=== PATIENT | female | born 1975 | race Asian ===

== ENCOUNTER 2022-02-03 14:57 | Outpatient (REF) | payer BC, SELFPAY ==
--- NOTE | ~2022-02-03 | XR_ITS ---
EXAMINATION: XR CHEST CLINICAL INFORMATION: Recurrent cough. COMPARISON: None TECHNIQUE: 2 views of the chest were obtained. FINDINGS: No significant abnormality is noted involving the heart, lungs, mediastinum, bony thorax or soft tissues. XR/XR chest 2V IMPRESSION: Unremarkable chest examination.
== END 2022-02-03 14:58 | disposition home or self-care (01) ==
LOC: HO.HMGCX 14:57
PROVIDERS: PCP Internal Medicine; Visit Provider Internal Medicine
DX: R05.9 Cough, unspecified (principal); R76.11 Nonspecific reaction to tuberculin skin test without active tuberculosis
CPT/HCPCS: 71046

== ENCOUNTER 2022-02-12 14:54 | Outpatient (REF) | payer BC, SELFPAY ==
[2022-02-12 15:18] LABS: MANUAL DIFF FLAG NO
[2022-02-12 15:39] LABS: Basophils Percent Auto 0.5 % (0-2); Eosinophils Percent Auto 0.5 % (0-4); Hematocrit 38.3 % (37.0-47.0); Hemoglobin 11.9 g/dl (12.0-16.0); Imm Gran Abs Auto 0.01 X10*3/uL (0.00-0.03); Imm Gran Pct Auto 0.2 % (0.0-0.4); Lymphocytes Percent Auto 34.8 % (20-40); Mean Corpuscular HGB Conc 31.1 g/dl (31.0-35.0); Mean Corpuscular Hemoglobin 23.2 pg (27.0-33.0); Mean Corpuscular Volume 74.5 fL (80.0-98.0); Mean Platelet Volume 10.1 fL (9.4-12.3); Monocytes Absolute Auto 0.4 X10*3/uL (0.1-1.2); Monocytes Percent Auto 6.7 % (2-11); Neutrophils Absolute Auto 3.3 x10*3/uL (2.0-8.3); Neutrophils Percent Auto 57.3 % (45-73); Platelet Count 300 X10*3/uL (160-400); Red Blood Count 5.14 X10*6/uL (4.20-5.50); Red Cell Distribution Width 18.2 % (11.0-16.0); White Blood Count 5.7 X10*3/uL (4.8-10.8)
[2022-02-14 14:28] LABS: Immunoglobulin G Subclass 1 718 mg/dL (382-929); Immunoglobulin G Subclass 2 504 mg/dL (241-700); Immunoglobulin G Subclass 3 55 mg/dL (22-178); Immunoglobulin G Subclass 4 61.3 mg/dL (4-86); Immunoglobulin G Total 1454 mg/dL (600-1640)
[2022-02-15 03:29] LABS: TS Negative Control Passed; TS Panel A 0; TS Panel B 0; TS Positive Control Passed; TSpotTB Negative (Negative)
[2022-02-17 11:58] LABS: IgA 307 mg/dL (47-310); IgG 1446 mg/dL (600-1640); IgM 137 mg/dL (50-300)
== END 2022-02-12 14:55 | disposition home or self-care (01) ==
LOC: HO.LAB 14:54
PROVIDERS: PCP Internal Medicine; Visit Provider Internal Medicine Pulmonary Disease
DX: Z91.09 Other allergy status, other than to drugs and biological substances (principal); Z92.89 Personal history of other medical treatment
CPT/HCPCS: 36415; 82784; 82785; 85025; 86003; 86481

== ENCOUNTER 2022-03-04 14:56 | Outpatient (REF) | payer BC, SELFPAY ==
--- NOTE | 2022-03-04 17:40 | PFT_ITS ---
INDICATION: Dyspnea. SPIROMETRY: FEV1 to FVC 81% with an FEV1 of 2.4 L, which is 92% predicted and FVC of 2.94 L, which is 91% predicted. No significant response to bronchodilators noted. Maximum voluntary ventilation 92% predicted. LUNG VOLUMES: Total lung capacity 101% predicted. DIFFUSION CAPACITY: DLCO 94% predicted. COMPARISONS: None. INTERPRETATION: No obstructive nor restrictive ventilatory defects identified. No significant response to bronchodilators noted. Normal maximum voluntary ventilation. Lung volumes are normal and diffusion capacity is within normal limits. If asthma is in the differential, methacholine challenge may be helpful in assessing for hyper-reactive airways, otherwise clinical correlation warranted. MD RUBY Shirley/MODThomas / [id number]
== END 2022-03-04 14:57 | disposition home or self-care (01) ==
LOC: HO.RESP 14:56
PROVIDERS: PCP Internal Medicine; Visit Provider Internal Medicine Pulmonary Disease
DX: R05.9 Cough, unspecified (principal)
CPT/HCPCS: 94060; 94727; 94729

== ENCOUNTER → 2022-03-05 13:44 | Outpatient (BNVA) | payer BC, SELFPAY | PROVIDERS: PCP Internal Medicine; Visit Provider Internal Medicine Pulmonary Disease | DX: Z13.89 Encounter for screening for other disorder (principal) ==

== ENCOUNTER 2023-05-08 15:10 | Outpatient (REF) | payer BC, SELFPAY ==
--- NOTE | ~2023-05-08 | XR_ITS ---
EXAMINATION: XR ANKLE, RIGHT CLINICAL INFORMATION: Right ankle pain and swelling. COMPARISON: None available. TECHNIQUE: AP, lateral, and mortise views of the right ankle. FINDINGS: There are small avulsion fracture fragment tip of medial malleolus with mild soft tissue swelling which could be subacute or old. The lateral malleolus is normal. The ankle mortise and subtalar joints are normal. The soft tissues are normal. XR/XR ankle RT min 3V IMPRESSION: 1. Small avulsion fracture fragment tip of medial malleolus with mild soft tissue swelling. This could be subacute or old. 2. Rest of the ankle is unremarkable.
--- NOTE | ~2023-05-08 | XR_ITS ---
EXAMINATION: XR CHEST CLINICAL INFORMATION: Cough COMPARISON: 02/03/2022 TECHNIQUE: 2 views of the chest were obtained. FINDINGS: No significant abnormality is noted involving the heart, lungs, mediastinum, bony thorax or soft tissues. XR/XR chest 2V IMPRESSION: Unremarkable examination.
== END 2023-05-08 15:11 | disposition home or self-care (01) ==
LOC: HO.HMGCX 15:10
PROVIDERS: PCP Internal Medicine; Visit Provider Internal Medicine
DX: R60.0 Localized edema (principal); M25.571 Pain in right ankle and joints of right foot
CPT/HCPCS: 71046; 73610

== ENCOUNTER 2023-05-11 15:06 | Outpatient (REF) | payer BC, SELFPAY ==
--- NOTE | ~2023-05-11 | XR_ITS ---
EXAMINATION: XR KNEE, RIGHT CLINICAL INFORMATION: Right knee pain COMPARISON: None available. TECHNIQUE: Four views of the right knee. FINDINGS: No fracture or joint effusion. Alignment is anatomic. Joint spaces are maintained. No abnormal soft tissue calcification. XR/XR knee RT 2V IMPRESSION: Normal right knee.
== END 2023-05-11 15:07 | disposition home or self-care (01) ==
LOC: HO.HMGCX 15:06
PROVIDERS: PCP Internal Medicine; Visit Provider Internal Medicine
DX: M25.561 Pain in right knee (principal)
CPT/HCPCS: 73560

== ENCOUNTER 2023-06-03 12:47 | Day surgery (SDC) | payer BC, SELFPAY ==
[2023-06-01 15:26] VITALS: BMI 22.0
--- NOTE | 2023-06-02 11:41 | P.CONAN_ITS ---
Documented by User: Tami Gonsales NP 06/02/23 11:42 HPI - Anesthesia Eval Consult details Narrative: 48yo F for Colonoscopy [facility] Active Problems Active Problems: All Active Problems (Updated 02/12/22 @ 14:48 by Avni Jiménez MD) Environmental allergies (Acute) History of positive PPD (Acute) Cough (Acute) Social History Social History (Updated 02/12/22 @ 14:24 by Karime Sousa LPN) Patient Tobacco Use Status: Never used Tobacco Advance Directives: No Advance Directives Information Provided: Yes Meds Allergies Allergy/AdvReac Type Severity Reaction Status Date / Time No Known Allergies Allergy Verified 06/03/23 13:17 Home Medications Medication Instructions Recorded Confirmed Last Taken Type No Known Home Meds 06/03/23 06/03/23 Unknown History Exam Height,Weight and Vital Signs: Height 5 ft 1 in Weight 52.844 kg Narrative Narrative: XR chest 2V 05/2023 IMPRESSION: Unremarkable examination. Assessment and Plan Assessment Anesthesia Assessment: Chart Reviewed Documented by User: Jaime Gonsalves MD 06/03/23 13:21 [facility] Family History Family history of problems with anesthesia: No Surgical History History of Problems with Anesthesia: No Social History Social History (Updated 02/12/22 @ 14:24 by Karime Sousa LPN) Patient Tobacco Use Status: Never used Tobacco Advance Directives: No Advance Directives Information Provided: Yes Meds Allergies Allergy/AdvReac Type Severity Reaction Status Date / Time No Known Allergies Allergy Verified 06/03/23 13:17 Home Medications Medication Instructions Recorded Confirmed Last Taken Type No Known Home Meds 06/03/23 06/03/23 Unknown History Exam Airway Mallampati Class: II TM Dist: >3cm Neck ROM: Full Loose/Missing/Broken Teeth: No Heart: rrr Lungs: cta Assessment and Plan Assessment Anesthesia Assessment: Anesthesia Plan Discussed Final Anesthetic Review Family History of Problems with Anesthesia: No History of Problems with Anesthesia: No NPO: Yes ASA Class: I Final Preanesthetic Review: No Changes in Pt Med Stat, Meds/Allgs Chart Reviewed, Consent Obtained/Reviewed and Anes Risks/Benef Reviewed Patient Risk: Intermediate Procedure Risk: Intermediate Anesthetic Plan Anesthetic Plan: MAC: Disposition: Standard PACU
[2023-06-03 13:31] VITALS: BP 102/49; PULSE 53; RESP 16; TEMP 36.6; O2SAT 100
--- NOTE | 2023-06-03 13:51 | MHC.SHP ---
Pre-Procedural Eval Section A - 24 Hr Update-Section A only Date of Service: 06/03/23 The patient is an INPATIENT: No Changes since office visit: No Cold of Flu in the past 2 weeks, No New Medical Problems, No Changes in Medication and No Patient answered all questions The patient has been examined within 24 hours of the surgical procedure. The History & Physical has been completed within 30 days and I have reviewed it.: Yes Section B - Complete if H&P > 30 days Chief Complaint: Encounter for screening for malignant neoplasm of Allergies: Allergies Allergy/AdvReac Type Severity Reaction Status Date / Time No Known Allergies Allergy Verified 06/03/23 13:17 Plan I have reviewed the history and physical and performed a pertinent physical examination on my patient. No changes have occurred unless specified. Time Spent With Patient Time: Total time managing care of this patient today ____ minutes.
--- NOTE | 2023-06-03 13:51 | HO.ANESEVENT ---
Anesthesia Event Note Date of Service: 06/03/23 Event Note: patient states that she is not and no chance to be and accepts liability if because she is not able to give urine for test Time Spent With Patient Time: Total time managing care of this patient today ____ minutes.
--- NOTE | 2023-06-03 13:56 | PC.NURSE ---
Pt unable to provide urine sample for test pre procedure. Pt denies being sexually active and admits to having her menses 05/26. Anesthesia aware and discussed inherent risks of sedation and possible .
[2023-06-03 14:47] VITALS: BP 84/50; PULSE 58; RESP 14; TEMP 36.1; O2SAT 100
[2023-06-03 14:52] VITALS: BP 95/58; PULSE 60; RESP 15; O2SAT 100
[2023-06-03 15:02] VITALS: BP 104/56; PULSE 62; RESP 18; TEMP 36.2; O2SAT 100
--- NOTE | 2023-06-04 01:04 | OP_ITS ---
DATE OF SERVICE: 06/03/2023 SURGEON: Branden Cruz MD INDICATIONS: Colon cancer screening. PREOPERATIVE DIAGNOSIS: POSTOPERATIVE DIAGNOSIS: PROCEDURE PERFORMED: Colonoscopy to the terminal ileum with biopsy and snare polypectomy. ESTIMATED BLOOD LOSS: COMPLICATIONS: ANESTHESIA: Monitored anesthesia care. ASSISTANTS: SPECIMENS: DESCRIPTION OF PROCEDURE: History and physical was performed. The risks and benefits of the procedure were explained to the patient. Informed consent was obtained. The patient was placed in the left lateral decubitus position. A digital rectal exam was performed and was found to be normal. The Olympus pediatric video colonoscope was introduced into the rectum and advanced to the cecum. The cecum was identified by transillumination, palpation, and identification of ileocecal valve. Examination was performed. The scope was removed. She tolerated the procedure well and was returned to the recovery area in stable condition. FINDINGS: The terminal ileum was examined and appeared normal. The visualized colonic mucosa was normal. The quality of the prep was good. Two polyps were identified. The first located in the cecum, measured approximately 4 mm. This was removed with biopsy forceps. There was a 2nd polyp at 60 cm, which measured approximately 10 mm and was removed with a hot snare. No other polyps were identified. Retroflexed examination showed small internal hemorrhoids. IMPRESSION: Colon polyps. RECOMMENDATION: Follow up the biopsy results. MD BRADEN Barroso/MODL / [id number] MTDD
== END 2023-06-03 15:26 | disposition home or self-care (01) ==
PROVIDERS: PCP Internal Medicine; Visit Provider Internal Medicine Gastroenterology
PROC: 0DJD8ZZ Inspection of Lower Intestinal Tract, Via Natural or Artificial Opening Endoscopic (ICD-10-PCS; CPT 45378; principal; 2023-06-03 14:20)
DX: Z12.11 Encounter for screening for malignant neoplasm of colon (principal); D12.0 Benign neoplasm of cecum; K63.5 Polyp of colon
CPT/HCPCS: 45385; 45380; 88305; 99499; J2704

== ENCOUNTER 2023-10-26 08:18 | Outpatient (REF) | payer BC, SELFPAY ==
[2023-10-26 10:13] LABS: MANUAL DIFF FLAG NO
[2023-10-26 10:17] LABS: Basophils Percent Auto 0.8 % (0-2); Eosinophils Absolute Auto 0.1 X10*3/uL (0.0-0.4); Hematocrit 43.2 % (37.0-47.0); Hemoglobin 14.4 g/dl (12.0-16.0); Lymphocytes Absolute Auto 2.2 X10*3/uL (1.2-4.9); Lymphocytes Percent Auto 46.3 % (20-40); Mean Corpuscular HGB Conc 33.3 g/dl (31.0-35.0); Mean Corpuscular Hemoglobin 28.9 pg (27.0-33.0); Mean Corpuscular Volume 86.6 fL (80.0-98.0); Mean Platelet Volume 10.8 fL (9.4-12.3); Monocytes Absolute Auto 0.3 X10*3/uL (0.1-1.2); Monocytes Percent Auto 5.4 % (2-11); Neutrophils Absolute Auto 2.2 x10*3/uL (2.0-8.3); Neutrophils Percent Auto 46.5 % (45-73); Platelet Count 192 X10*3/uL (160-400); Red Blood Count 4.99 X10*6/uL (4.20-5.50); Red Cell Distribution Width 15.9 % (11.0-16.0); White Blood Count 4.8 X10*3/uL (4.8-10.8)
[2023-10-26 11:26] LABS: Ferritin 69 ng/mL (10-250)
[2023-10-26 11:33] LABS: Cholesterol 206 mg/dL (<200); HDL Cholesterol 66 mg/dL (>40); Iron 95 mcg/dL (30-160); LDL Cholesterol Calculated 128 mg/dL (<100); Percent Iron Saturation 33 % (15-50); Total Iron Binding Capacity 292 mcg/dL (228-428); Triglycerides 64 mg/dL (<150); Unsaturated Iron Binding 197 ug/dL
[2023-10-26 11:42] LABS: Folate 13.6 ng/mL (> or = 4.0)
== END 2023-10-26 08:19 | disposition home or self-care (01) ==
LOC: HO.HMGCLDS 08:18
PROVIDERS: PCP Internal Medicine; Visit Provider Internal Medicine
DX: R53.83 Other fatigue (principal); D64.9 Anemia, unspecified; E78.5 Hyperlipidemia, unspecified
CPT/HCPCS: 36415; 80061; 82728; 82746; 83540; 85025

== ENCOUNTER 2024-12-15 09:11 | Outpatient (REF) | payer BC, SELFPAY ==
--- NOTE | ~2024-12-15 | MM_ITS ---
STUDY: DUAL ENERGY X-RAY ABSORPTIOMETRY / DXA REASON FOR EXAM: Female, 49 years old POST MENOPAUSAL TECHNIQUE: Bone Mineral Density (BMD) measurements of the lumbar spine and left hip were obtained using i[employer] COMPARISON: None FINDINGS: L2-L4 BMD: 0.966 g/cm2 L2-L4 T score: -1.9. This corresponds to osteopenia. Left femoral neck BMD: 0.780 g/cm2 Left femoral neck T score: -1.9. This corresponds to osteopenia. Left total hip BMD: 0.901 g/cm2 Left total hip T score: -0.8. This corresponds to Normal bone density. MM/XR DEXA axial skeleton IMPRESSION: Osteopenia Reference Information: The T-score is the number of standard deviations above or below the standard which is normal for young adults at their peak bone mineral density. The World Health Organization (WHO) interprets the T-scores as follows: At or above -1 SD Normal bone density Between -1 and -2.5 SD Osteopenia At or below -2.5 SD Osteoporosis Electronically signed by: Troy Mccann MD 12/15/2024 10:10 AM EDT
--- OUTSIDE RECORDS SUMMARY | 2024-12-15 10:18 | XMS_ITS | Patient Health Record ---
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 the day before the procedure; Duration: 1 day 05/20/2023 Active Immunizations Vaccine Route Administration Date Status Comme nts Influenza Unknown 01/20/2023 Administered Social History Tobacco Use: Social History Observation Description Date Details (start date - stop date) Never Smoker NA - NA Tobacco Use/Smoking Question Answer Notes Patient is a nonsmoker Alcohol Screen Question Answer Notes Did you have a drink containing alcohol in the p ast year? No Points 0 Interpretation Negative Problems Problem Type SNOMED Code ICD Code Onset Dates Problem Status W/U Status Risk Notes Problem Colon cancer screening (279739448) Colon cancer screening (Z12.11) Active confirmed Problem Pre-procedure evaluation check (839564241) Encounter for other preprocedural examination (Z01.818) Active confirmed Plan Of Treatment Future Test Test Name Order Date COLONOSCOPY 05/20/2023 Insurance Providers Payer Name Payer Address Payer Phone Subscriber Number Group Number Insured Name Patient Relationship to Insured Coverage Start Date Coverage End Date [facility] [address] [place] [address] [phone] [id number], STEF Self - patient is the insured Medical (General) History Surgical History Surgery Date(Month/Year)
== END 2024-12-15 09:12 | disposition home or self-care (01) ==
LOC: HO.MAMMO 09:11
PROVIDERS: PCP Internal Medicine; Visit Provider Internal Medicine
DX: Z13.820 Encounter for screening for osteoporosis (principal); Z78.0 Asymptomatic menopausal state
CPT/HCPCS: 77080

== ENCOUNTER → 2024-12-15 09:15 | Outpatient (BNV) | payer BC, SELFPAY | PROVIDERS: PCP Internal Medicine; Visit Provider Radiology Body Imaging | DX: E28.39 Other primary ovarian failure (principal) | CPT/HCPCS: 77080 ==

== ENCOUNTER 2024-12-30 07:33 | Outpatient (REF) | payer BC, SELFPAY ==
--- OUTSIDE RECORDS SUMMARY | 2024-12-30 07:36 | XMS_ITS | Patient Health Record ---
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 Phone Estefany (RETIRED) Nicholas WANG [...] Status Risk Notes Problem Colon cancer screening (982986286) Colon cancer screening (Z12.11) Active confirmed Problem Pre-procedure evaluation check (410436986) Encounter for other preprocedural examination (Z01.818) Active confirmed Plan Of Treatment Future Test Test Name Order Date COLONOSCOPY 05/20/2023 Insurance Providers Payer Name Payer Address Payer Phone Subscriber Number Group Number Insured Name Patient Relationship to Insured Coverage Start Date Coverage End Date [facility] [address] [place] [address] [id number], [id number] Self - patient is the insured Medical (General) History Surgical History Surgery Date(Month/Year)
[2024-12-30 10:37] LABS: Hematocrit 44.3 % (37.0-47.0); Hemoglobin 14.4 g/dl (12.0-16.0); Mean Corpuscular HGB Conc 32.5 g/dl (31.0-35.0); Mean Corpuscular Hemoglobin 27.6 pg (27.0-33.0); Mean Corpuscular Volume 85.0 fL (80.0-98.0); NRBC Abs Auto 0.000 X10*3/uL (0.0-0.012); NRBC Pct Auto 0.0 /100WBC (0.0-0.2); Platelet Count 180 X10*3/uL (160-400); Red Blood Count 5.21 X10*6/uL (4.20-5.50); White Blood Count 5.5 X10*3/uL (4.8-10.8)
[2024-12-30 10:47] LABS: Appearance Urine Clear; Glucose Urine UA Negative (Negative); PH 6.0 (5.0-9.0); Specific Gravity - Urine 1.015 (1.005-1.025); UMIC TRIGGER UA YES
[2024-12-30 11:08] LABS: Alanine Aminotransferase 26 U/L (0-31); Albumin Level 4.4 g/dL (3.5-5.0); Alkaline Phosphatase 55 U/L (39-117); Anion Gap 10 (12-20); Aspartate Amino Transferase 27 U/L (5-31); Blood Urea Nitrogen 15 mg/dL (9-16); Calcium 9.5 mg/dL (8.4-10.2); Carbon Dioxide 23 mmol/L (22-29); Chloride 110 mmol/L (96-108); Cholesterol 225 mg/dL (<200); Estimated Glomerular Filt Rate > 60; HDL Cholesterol 62 mg/dL (>40); Potassium 3.7 mmol/L (3.3-5.1); Sodium 139 mmol/L (135-145); Total Protein 7.3 g/dL (6.5-8.0); Triglycerides 97 mg/dL (<150)
[2024-12-30 11:26] LABS: Thyroid Stimulating Hormone 1.31 uIU/mL (0.32-4.0)
== END 2024-12-30 07:34 | disposition home or self-care (01) ==
LOC: HO.HMGCLDS 07:33
PROVIDERS: PCP Internal Medicine; Visit Provider Internal Medicine
DX: R05.9 Cough, unspecified (principal); Z13.6 Encounter for screening for cardiovascular disorders; Z13.29 Encounter for screening for other suspected endocrine disorder
CPT/HCPCS: 36415; 80048; 80061; 80076; 81001; 84443; 85027

== ENCOUNTER 2025-01-03 14:47 | Outpatient (AMB) | payer BC, SELFPAY ==
--- NOTE | 2025-01-03 14:50 | A.OFFPC_ITS ---
Vital Signs 01/03/25 14:58 Height 5 ft 0.5 in Weight 120 lb BMI 23.0 BP 100/62 Blood Pressure Location Rt brachial Pulse 59 Pulse Source Pulse Oximeter Temp 98.3 F Pulse Oximetry (%) 99 Intake Visit Reasons: Establish Care/ Dr. Allison Intake Note: Had Bone Density last monthat [facility] on December 15 would like results, also her toe nails are getting thick and fungal infection and would like to discuss menopause. Allergies No Known Allergies Allergy (Verified 01/03/25 14:52) PFSH Medical History (Updated 01/03/25 @ 15:24 by Frank Lal MD) Hyperlipidemia Surgical History (Updated 01/02/25 @ 08:17 by Dulce Aguilar) History of colonoscopy (~06/04/23) Social History (Updated 02/12/22 @ 14:24 by Karime Sousa LPN) Patient Tobacco Use Status: Never used Tobacco Questionnaire PHQ-9 Over the last 2 weeks, how often have you been bothered by any of the following problems? 1. Little interest or pleasure in doing things: not at all 2. Feeling down, depressed, or hopeless: not at all 3. Trouble falling or staying asleep, or sleeping too much: several days 4. Feeling tired or having little energy: not at all 5. Poor appetite or overeating: not at all 6. Feeling bad about yourself - or that you are a failure or have let yourself or your family down: not at all 7. Trouble concentrating on things, such as reading the newspaper or watching television: not at all 8. Moving or speaking so slowly that other people could have noticed. Or the opposite - being so fidgety or restless that you have been moving around a lot more than usual: not at all 9. Thoughts that you would be better off or of hurting yourself in some way: not at all Total score: 1 Source: Developed by Drs. Adalberto Farah, Shea Capps, Raghav Ford and colleagues, with an educational jackie from [employer]. Thrive Questionnaire Date Thrive assessed: 01/03/25 I am a: Patient What is your living situation today?: I have a steady place to live Within the past 12 months, did the food you bought not last and you didn't have the money to get more?: Never true Within the past 12 months, did you worry whether your food would run out before you got money to buy more?: Never true Do you have trouble paying for medicines?: No Do you have trouble getting transportation to medical appointments?: No Do you have trouble paying your heating and electricity bill?: No Do you have trouble taking care of your child, family member or friend?: No Do you have trouble with day-to-day activities such as bathing, preparing meals, shopping, managing finances, etc.?: No Are you currently unemployed and looking for a job?: No Are you interested in more education?: No THRIVE Score: 0 AUDIT C Alcohol Use Questionnaire (AUDIT-C) 1. How often do you have a drink containing alcohol?: Never 3. How often do you have six or more drinks on one occasion?: Never Total Score: 0 BRENT-7 AMB Questionnaire BRENT-7 Date BRENT - 7 assessed: 01/03/25 Feeling nervous, anxious, or on edge: 0 = Not at all Not being able to stop or control worryin = Not at all Worrying too much about different things: 0 = Not at all Trouble relaxin = Not at all Being so restless that it is hard to sit still: 0 = Not at all Becoming easily annoyed or irritable: 0 = Not at all Feeling afraid as if something awful might happen: 0 = Not at all Total BRENT-7 score (0-4 normal; 5-9 mild; 10-14 moderate; 15-21 severe): 0 Source: Developed by Drs. Adalberto Farah, Shea Capps, Raghav Ford and colleagues, with an educational jackie from [employer]. Physical exam (Primary Care) Vital Signs: Last Vital Signs Temp 98.3 F 01/03/25 14:58 Pulse 59 01/03/25 14:58 BP 100/62 01/03/25 14:58 Pulse Ox 99 01/03/25 14:58 BMI result Body Mass Index 23.0 Tobacco/Smoking Status: Tobacco use Status Patient Tobacco Use Status Never used Tobacco 01/03/25 15:01 PHQ-9: PHQ-9 Score PHQ-9: Total score 1 01/03/25 15:01 Thrive Assessment: Date of Thrive Assessment Date Thrive assessed 01/03/25 01/03/25 15:01 Coding Level of Care Code New Pt Level 4 (00652) Complex EM visit Add On G2211 Diagnoses Hyperlipidemia E78.5 Assessment & Plan Assessment & Plan (1) Hyperlipidemia: Code(s): E78.5 - Hyperlipidemia, unspecified Category: Medical Plan: History of Present Illness - The patient is a 49-year-old female presenting with concerns regarding her bone density, toenail fungus, and menopausal symptoms. - Osteopenia: A bone density scan on December 15 revealed osteopenia, which concerns the patient despite her active lifestyle that includes regular exercise, running, and strength training. - Onychomycosis: The patient has a long history of fungal infection in two toenails, and a third nail on her right foot has recently become involved and is worsening. - She has been using a topical cream with little improvement and believes she may need oral medication. - Perimenopausal symptoms: Her last menstrual period was on November 10. - She reports sleep difficulties, including waking up as early as 1:00 or 3:00 AM, which she attributes to a combination of work-related stress and menopause. - She denies experiencing significant hot flashes or sweats. - Past Medical History: The patient has a history of a colonoscopy where a polyp was removed. - Her recent mammogram was normal. 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 - Stress: She reports experiencing work-related stress, particularly concerning class enrollment numbers, which she feels contributes to her sleep problems. - Exercise: The patient reports exercising a lot, including strength training and running. Review of Systems - Constitutional: Denies significant sweats. - Integumentary: Reports fungal infection on three toenails, with one getting worse. - Musculoskeletal: Reports concern over bone density being 'lower than the normal'. - Neurological: Reports difficulty sleeping with director presales awakenings. - Psychiatric: Reports work-related stress and feeling worried. - Denies irritability, crankiness, or crying. - Endocrine: Reports her last menstrual period was November 10 and believes she is reaching menopause. Physical Exam General: Cooperative and healthy appearing Nutritional Appearance: Well nourished Orientation/consciousness: Patient oriented x3 Limitations: No limitations Head: Normal to inspection General: Appearance normal, both eyes and all related structures Neck: Normal visual inspection Chest: Normal palpation of entire chest wall Respiratory: N ormal respiratory effort Neurology: Patient oriented x3, mood good, not irritable or cranky, sometimes stressed but no crying or excessive eating. Results - Bone Mineral Density (December 15): Showed osteopenia of the neck. - Mammogram: Normal. - Colonoscopy (prior): Revealed a polyp that was removed. Plan - Osteopenia: The patient was reassured that her bone is healthy, just less dense. - She was advised to continue her current exercise regimen, including weight- bearing activities, and maintain adequate calcium intake. - A repeat bone density scan is recommended in two years. - Onychomycosis: After a discussion of the risks, including potential hepatotoxicity, and benefits of oral antifungal medication, the patient declined this treatment option. - She will be prescribed a strong topical cream/drop for the affected toenails. - She was also advised to keep her nails clipped and clean. - Perimenopausal Insomnia/Stress: The patient declined a prescription for sleep medication (trazodone) at this time. - Hormone replacement therapy was discussed and not recommended due to increased risks of breast cancer and heart disease. - The patient may try soy milk as a source of phytoestrogens. - Follow-up: The patient will return for a follow-up visit in six months. Discussion Notes I discussed the results of the patient's recent bone density scan, explaining that the diagnosis of osteopenia means she has healthy bone, but less bone mass. I reassured her that her current regimen of weight-bearing exercise is the correct approach and that no medication is needed at this time, with a plan to repeat the scan in two years. Regarding the toenail fungus, I explained that topical treatments are often not very effective, and we discussed oral medications. I informed her that oral treatment would last a minimum of three months, carries a risk of liver side effects requiring monitoring, and is not always successful. The patient understood the risks and declined oral medication, so we agreed to try a prescription topical cream. We addressed her insomnia, which is likely related to perimenopause and stress. I explained the risks of postmenopausal estrogen therapy, including an increased risk of breast cancer and heart disease, and therefore did not recommend it. I offered trazodone for sleep, but she declined at this time. We confirmed her mammogram is up to date and that she will need a follow-up colonoscopy given her history of a polyp. I advised a follow-up visit in six months. Patient Instructions - For your bone health, continue with your regular exercises like running and weight training. - No medication is needed for your bones at this time. - We will repeat your bone density test in two years. - I am sending a prescription for a strong cream for your toenail fungus to your pharmacy, which should be ready tomorrow. - You decided not to take pills for the fungus due to the risk of liver problems. - For sleep difficulty, we discussed that this can be a part of menopause. - You chose not to take any sleep medication at this time, but let me know if you change your mind. - Please schedule a follow-up appointment in six months for a check-up.
[2025-01-03 14:58] VITALS: BP 100/62; PULSE 59; TEMP 36.8; O2SAT 99; BMI 23.0
--- OUTSIDE RECORDS SUMMARY | 2025-01-03 17:51 | XMS_ITS | Patient Health Record ---
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 Role Phone Estefany (RETIRED) Nicholas WANG Primary Care Provider Unavailable Branden Cruz Jr Unavailable [phone] Allergies No Known Allergies Reason For Referral [...] Status Risk Notes Problem Colon cancer screening (449508178) Colon cancer screening (Z12.11) Active confirmed Problem Pre-procedure evaluation check (131984265) Encounter for other preprocedural examination (Z01.818) Active confirmed Plan Of Treatment Future Test Test Name Order Date COLONOSCOPY 05/20/2023 Insurance Providers Payer Name Payer Address Payer Phone Subscriber Number Group Number Insured Name Patient Relationship to Insured Coverage Start Date Coverage End Date [facility] [address] [place] [address] [id number], [id number] Self - patient is the insured Medical (General) History Surgical History Surgery Date(Month/Year)
== END 2025-01-03 15:24 | disposition home or self-care (01) ==
LOC: HO.HMCSH 14:47
PROVIDERS: PCP Internal Medicine; Visit Provider Internal Medicine
DX: E78.5 Hyperlipidemia, unspecified (principal)